=== PATIENT | male | born 1985 | race Caucasian/White ===

== ENCOUNTER 2019-05-22 09:37 | Emergency (ER) | payer OTHER ==
[2019-05-22] MEDS ORDERED: Ketorolac 30 MG/ML SDV IVPUSH ONE (10:03)
[2019-05-22] MEDS ORDERED: Ondansetron 4 MG/2 ML SDV IVPUSH ONE (10:03)
[2019-05-22] MEDS ORDERED: Sodium Chloride 0.9% 1,000 ML IV ONE (10:03)
[2019-05-22] MEDS ORDERED: Alum Hydrox/Mag Hydrox/Simeth 15 ML, Lidocaine 2% 5 ML PO ONE ×2 (10:04)
[2019-05-22] MEDS ORDERED: Pantoprazole 40 MG Vial IVPUSH ONE (10:04)
[2019-05-22] MEDS ORDERED: Water For Injection, Sterile 20 ML ONE (10:06)
--- NOTE | 2019-05-22 10:08 | EDM.PDOC ---
ED HPI GENERAL MEDICAL PROBLEM - General Chief Complaint: Abdominal Pain Stated Complaint: ABD CRAMPING Time Seen by Provider: 05/22/19 09:59 - History of Present Illness INITIAL COMMENTS - FREE TEXT/NARRATIVE: HISTORY AND PHYSICAL: History of present illness: Patient's a 34-year-old white male presents with a concern of epigastric abdominal pain is been worse over the last 2 days of fever chills or mild nausea there's been no trauma he denies diarrhea. Review of systems: As per history of present illness and below otherwise all systems reviewed and negative. Past medical history: As per history of present illness and as reviewed below otherwise noncontributory. Surgical history: As per history of present illness and as reviewed below otherwise noncontributory. Social history: No reported history of drug or alcohol abuse. Family history: As per history of present illness and as reviewed below otherwise noncontributory. Physical exam: HEENT: Atraumatic, normocephalic, pupils reactive, negative for conjunctival pallor or scleral icterus, mucous membranes moist, throat clear, neck supple, nontender, trachea midline. Lungs: Clear to auscultation, breath sounds equal bilaterally, chest nontender. Heart: S1S2, regular, negative for clicks, rubs, or JVD. Abdomen: Soft, nondistended, tenderness in the upper abdomen to deep palpation is not well localized no rebound no guarding. Negative for masses or hepatosplenomegaly. Negative for costovertebral tenderness. Pelvis: Stable nontender. Genitourinary: Deferred. Rectal: Deferred. Extremities: Atraumatic, negative for cords or calf pain. Neurovascular unremarkable. Neuro: Awake, alert, oriented. Cranial nerves II through XII unremarkable. Cerebellum unremarkable. Motor and sensory unremarkable throughout. Exam nonfocal. Diagnostics: CBC CMP UDS lipase chest x-ray CT abdomen and pelvis Therapeutics: Saline 1 L bolus and Toradol 30 mg IV Zofran 4 mg IV Protonix 80 mg IV Impression: #1 abdominal pain Definitive disposition and diagnosis as appropriate pending reevaluation and review of above. Abdominal Pain Score (Numeric/FACES): 4 - Related Data Allergies Allergy/AdvReac Type Severity Reaction Status Date / Time No Known Allergies Allergy Verified 05/22/19 09:46 Home Meds: Home Meds . [No Known Home Meds] 05/22/19 [History] Past Medical History - Past Health History Medical/Surgical History: Denies Medical/Surgical History - Infectious Disease History Infectious Disease History: Reports: Chicken Pox Social & Family History - Family History Family Medical History: Noncontributory - Tobacco Use Smoking Status *Q: Current Every Day Smoker Years of Tobacco use: 13 Packs/Tins Daily: 0.2 - Caffeine Use Caffeine Use: Reports: Coffee - Recreational Drug Use Recreational Drug Use: No ED ROS GENERAL - Review of Systems Review Of Systems: ROS reveals no pertinent complaints other than HPI. ED EXAM, GENERAL - Physical Exam Exam: See Below (See dictation) Course - Vital Signs Last Recorded V/S: Last Vital Signs Temp 36.6 C 05/22/19 11:36 Pulse 90 05/22/19 11:36 Resp 20 05/22/19 11:36 BP 142/82 H 05/22/19 11:36 Pulse Ox 97 05/22/19 11:36 - Orders/Labs/Meds Labs: Laboratory Tests 05/22/19 05/22/19 05/22/19 Range/Units 09:51 09:51 10:30 WBC 4.71 (4.0-11.0) K/uL RBC 5.11 (4.50-5.90) M/uL Hgb 15.7 (13.0-17.0) g/dL Hct 44.9 (38.0-50.0) % MCV 87.9 (80.0-98.0) fL MCH 30.7 (27.0-32.0) pg MCHC 35.0 (31.0-37.0) g/dL RDW Std Deviation 42.4 (28.0-62.0) fl RDW Coeff of Melvin 13 (11.0-15.0) % Plt Count 274 (150-400) K/uL MPV 10.70 (7.40-12.00) fL Neut % (Auto) 54.3 (48.0-80.0) % Lymph % (Auto) 30.4 (16.0-40.0) % Florence % (Auto) 11.9 (0.0-15.0) % Eos % (Auto) 2.8 (0.0-7.0) % Baso % (Auto) 0.6 (0.0-1.5) % Neut # (Auto) 2.6 (1.4-5.7) K/uL Lymph # (Auto) 1.4 (0.6-2.4) K/uL Florence # (Auto) 0.6 (0.0-0.8) K/uL Eos # (Auto) 0.1 (0.0-0.7) K/uL Baso # (Auto) 0.0 (0.0-0.1) K/uL Nucleated RBC % 0.0 /100WBC Nucleated RBCs # 0 K/uL INR Sodium (136-148) mmol/L Potassium (3.5-5.1) mmol/L Chloride (98-107) mmol/L Carbon Dioxide (21.0-32.0) mmol/L BUN (7.0-18.0) mg/dL Creatinine (0.8-1.3) mg/dL Est Cr Clr Drug Dosing mL/min Estimated GFR (MDRD) ml/min Glucose (74-106) mg/dL Calcium (8.5-10.1) mg/dL Total Bilirubin (0.2-1.0) mg/dL AST (15-37) IU/L ALT (14-63) IU/L Alkaline Phosphatase (46-116) U/L Total Protein (6.4-8.2) g/dL Albumin (3.4-5.0) g/dL Globulin (2.6-4.0) g/dL Albumin/Globulin Ratio (0.9-1.6) Lipase (73-393) U/L Urine Color YELLOW Urine Appearance CLEAR Urine pH 5.5 (5.0-8.0) Ur Specific Hindman >= 1.030 (1.001-1.035) Urine Protein NEGATIVE (NEGATIVE) mg/dL Urine Glucose (UA) NEGATIVE (NEGATIVE) mg/dL Urine Ketones NEGATIVE (NEGATIVE) mg/dL Urine Occult Blood NEGATIVE (NEGATIVE) Urine Nitrite NEGATIVE (NEGATIVE) Urine Bilirubin NEGATIVE (NEGATIVE) Urine Urobilinogen 0.2 (<2.0) EU/dL Ur Leukocyte Esterase NEGATIVE (NEGATIVE) Urine Opiates Screen NEGATIVE (NEGATIVE) Ur Oxycodone Screen NEGATIVE (NEGATIVE) Urine Methadone Screen NEGATIVE (NEGATIVE) Ur Barbiturates Screen NEGATIVE (NEGATIVE) Ur Phencyclidine Scrn NEGATIVE (NEGATIVE) Ur Amphetamine Screen NEGATIVE (NEGATIVE) U Methamphetamines Scrn NEGATIVE (NEGATIVE) U Benzodiazepines Scrn NEGATIVE (NEGATIVE) U Cocaine Metab Screen NEGATIVE (NEGATIVE) U Marijuana (THC) Screen NEGATIVE (NEGATIVE) 05/22/19 05/22/19 Range/Units 10:30 10:30 WBC (4.0-11.0) K/uL RBC (4.50-5.90) M/uL Hgb (13.0-17.0) g/dL Hct (38.0-50.0) % MCV (80.0-98.0) fL MCH (27.0-32.0) pg MCHC (31.0-37.0) g/dL RDW Std Deviation (28.0-62.0) fl RDW Coeff of Melvin (11.0-15.0) % Plt Count (150-400) K/uL MPV (7.40-12.00) fL Neut % (Auto) (48.0-80.0) % Lymph % (Auto) (16.0-40.0) % Florence % (Auto) (0.0-15.0) % Eos % (Auto) (0.0-7.0) % Baso % (Auto) (0.0-1.5) % Neut # (Auto) (1.4-5.7) K/uL Lymph # (Auto) (0.6-2.4) K/uL Florence # (Auto) (0.0-0.8) K/uL Eos # (Auto) (0.0-0.7) K/uL Baso # (Auto) (0.0-0.1) K/uL Nucleated RBC % /100WBC Nucleated RBCs # K/uL INR 0.97 Sodium 147 (136-148) mmol/L Potassium 3.6 (3.5-5.1) mmol/L Chloride 109 H (98-107) mmol/L Carbon Dioxide 26.6 (21.0-32.0) mmol/L BUN 10 (7.0-18.0) mg/dL Creatinine 1.1 (0.8-1.3) mg/dL Est Cr Clr Drug Dosing 108.95 mL/min Estimated GFR (MDRD) > 60.0 ml/min Glucose 100 (74-106) mg/dL Calcium 8.5 (8.5-10.1) mg/dL Total Bilirubin 0.4 (0.2-1.0) mg/dL AST 14 L (15-37) IU/L ALT 31 (14-63) IU/L Alkaline Phosphatase 73 (46-116) U/L Total Protein 7.3 (6.4-8.2) g/dL Albumin 3.7 (3.4-5.0) g/dL Globulin 3.6 (2.6-4.0) g/dL Albumin/Globulin Ratio 1.0 (0.9-1.6) Lipase 98 (73-393) U/L Urine Color Urine Appearance Urine pH (5.0-8.0) Ur Specific Hindman (1.001-1.035) Urine Protein (NEGATIVE) mg/dL Urine Glucose (UA) (NEGATIVE) mg/dL Urine Ketones (NEGATIVE) mg/dL Urine Occult Blood (NEGATIVE) Urine Nitrite (NEGATIVE) Urine Bilirubin (NEGATIVE) Urine Urobilinogen (<2.0) EU/dL Ur Leukocyte Esterase (NEGATIVE) Urine Opiates Screen (NEGATIVE) Ur Oxycodone Screen (NEGATIVE) Urine Methadone Screen (NEGATIVE) Ur Barbiturates Screen (NEGATIVE) Ur Phencyclidine Scrn (NEGATIVE) Ur Amphetamine Screen (NEGATIVE) U Methamphetamines Scrn (NEGATIVE) U Benzodiazepines Scrn (NEGATIVE) U Cocaine Metab Screen (NEGATIVE) U Marijuana (THC) Screen (NEGATIVE) Meds: Medications Discontinued Medications Generic Name Dose Route Start Last Admin Trade Name Freq PRN Reason Stop Dose Admin Al Hydroxide/Mg Hydroxide 15 0 ml 05/22/19 10:04 05/22/19 10:25 ml/ Lidocaine HCl 5 ml PO 05/22/19 10:05 1 each ONETIME ONE Administration Sodium Chloride 1,000 mls @ 999 mls/hr 05/22/19 10:03 05/22/19 10:25 Normal Saline IV 05/22/19 11:03 999 mls/hr STAT ONE Administration Sterile Water Confirm 05/22/19 10:06 05/22/19 10:25 Sterile Water For Injection Administered 05/22/19 10:07 20 mls/hr Dose Administration 20 mls @ as directed .ROUTE .STK-MED ONE Ketorolac Tromethamine 30 mg 05/22/19 10:03 05/22/19 10:26 Toradol IVPUSH 05/22/19 10:04 30 mg ONETIME ONE Administration Ondansetron HCl 4 mg 05/22/19 10:03 05/22/19 10:26 Zofran IVPUSH 05/22/19 10:04 4 mg ONETIME ONE Administration Pantoprazole Sodium 80 mg 05/22/19 10:04 05/22/19 10:25 Protonix Iv IVPUSH 05/22/19 10:05 80 mg .BOLUS ONE Administration Departure - Departure Time of Disposition: 11:59 Disposition: Home, Self-Care 01 Condition: Good Clinical Impression: Abdominal pain - Discharge Information Referrals: PCP,None [Primary Care Provider] - Forms: ED Department Discharge Additional Instructions: The following information is given to patients seen in the emergency department who are being discharged to home. This information is to outline your options for follow-up care. We provide all patients seen in our emergency department with a follow-up referral. The need for follow-up, as well as the timing and circumstances, are variable depending upon the specifics of your emergency department visit. If you don't have a primary care physician on staff, we will provide you with a referral. We always advise you to contact your personal physician following an emergency department visit to inform them of the circumstance of the visit and for follow-up with them and/or the need for any referrals to a consulting specialist. The emergency department will also refer you to a specialist when appropriate. This referral assures that you have the opportunity for followup care with a specialist. All of these measure are taken in an effort to provide you with optimal care, which includes your followup. Under all circumstances we always encourage you to contact your private physician who remains a resource for coordinating your care. When calling for followup care, please make the office aware that this follow-up is from your recent emergency room visit. If for any reason you are refused follow-up, please contact the [facility] emergency department at and asked to speak to the emergency department charge nurse. [facility] - General Surgery Professional Building [address] [place] [address], [address] [place] [address] Protonix as prescribed follow-up Gen. surgery is needed as discussed
[2019-05-22 11:10] LABS: BLOOD UREA NITROGEN,BUN 10 mg/dL (7.0-18.0); CARBON DIOXIDE,CO2 26.6 mmol/L (21.0-32.0); CHLORIDE,CL 109 mmol/L (98-107); GLUCOSE RANDOM 100 mg/dL (74-106); LIPASE 98 U/L (73-393); POTASSIUM,K 3.6 mmol/L (3.5-5.1); SODIUM,NA 147 mmol/L (136-148)
--- NOTE | 2019-05-22 11:32 | CR ---
INDICATION: Chest pain TECHNIQUE: Chest one view. COMPARISON: None available FINDINGS: The heart is normal in size. The pulmonary vasculature is within normal limits. The lungs are clear without focal consolidation, pleural effusion or pneumothorax. IMPRESSION: No acute process. Dictated by Madyson Frank MD @ 05/22/2019 11:31:20 AM Dictated by: Madyson Frank MD @ 05/22/2019 11:31:28 (Electronically Signed)
--- NOTE | 2019-05-22 11:44 | CT ---
INDICATION: Abdomen pain, vomiting, diarrhea. TECHNIQUE: Nonenhanced volumetric CT scan of the abdomen pelvis with multiplanar reconstructions performed. FINDINGS: Lower chest is unremarkable. Solid abdominal organs are within normal limits, as visualized on this unenhanced examination. Gallbladder is slightly distended. No calcified stones. No biliary enlargement. No urinary calculi/evidence of obstruction. Nonobstructed, nonspecific bowel pattern. Appendix not confidently seen, but no evidence to suggest appendicitis. There is no evidence of subdiaphragmatic free air. No ascites. No inflammatory change identified. The urinary bladder and pelvis unremarkable. No acute/aggressive osseous lesions identified. IMPRESSION: There is no acute abnormality identified on this nonenhanced CT examination. No urinary calculi/evidence of obstruction. Please note that all CT scans at this facility use dose modulation, iterative reconstruction, and/or weight-based dosing when appropriate to reduce radiation dose to as low as reasonably achievable. Dictated by Terence Schmitt MD @ May 22 2019 11:37AM Signed by Dr. Terence Schmitt @ May 22 2019 11:43AM
== END 2019-05-22 12:20 | disposition home or self-care (01) ==
LOC: MW.ED 09:37
DX: R10.13 Epigastric pain (principal); F17.200 Nicotine dependence, unspecified, uncomplicated
CPT/HCPCS: 36415; 71045; 74176; 80053; 80305; 81003; 83690; 85025; 85610; A9270; C9113; J1885; J2405; J7040; 96361; 96374; 96375; 99284; 99284-25